=== PATIENT | female | born 1950 | race Caucasian/White ===

== ENCOUNTER → 2017-09-24 | Outpatient (CLI) | payer MEDICARE ==
[~2017-09-24] MED LIST: Aspirin EC81 MG; ESTRACE PO; HAIR REGROWTH TP; KRILL OIL 1,001 EAC1 PO; MAGNESIUM250 MG PO; OMEP10ER PO; PROG100 PO; VITAMIN D31000 UNIT PO; Vivelle-Dot1 EAC1 TD
[2017-09-28 13:05] LABS: HPV Genotype 16 Not Detected (NOTDET); HPV Genotype 18 Not Detected (NOTDET); HPV High Risk Other Not Detected (NOTDET)
== END | disposition home or self-care (01) ==
LOC: OLS 13:11
PROVIDERS: Obstetrics & Gynecology Gynecology
DX: Z91.89 Other specified personal risk factors, not elsewhere classified (principal)
CPT/HCPCS: 87624; G0123

== ENCOUNTER → 2017-10-16 | Outpatient (CLI) | payer MEDICARE | LOC: LAB 07:18 | DX: N84.0 Polyp of corpus uteri (principal); N95.0 Postmenopausal bleeding | CPT/HCPCS: 88305 ==

== ENCOUNTER → 2018-04-15 | Outpatient (CLI) | payer MEDICARE | LOC: PLD 10:06 → LAB SHORT 10:06 | DX: D48.5 Neoplasm of uncertain behavior of skin (principal) | CPT/HCPCS: 88305 ==

== ENCOUNTER 2020-09-22 21:41 | Emergency (ER) | payer MEDICARE ==
[~2020-09-22] VITALS: Ht 162.6 cm; Wt 73.0 kg
== END 2020-09-22 23:42 | disposition home or self-care (01) ==
LOC: ER 21:41
DX: I82.812 Embolism and thrombosis of superficial veins of left lower extremity (principal); Z79.82 Long term (current) use of aspirin; Z79.899 Other long term (current) drug therapy; Z87.891 Personal history of nicotine dependence
CPT/HCPCS: 93971; 99283-25; J1885

== ENCOUNTER → 2023-04-15 | Outpatient (CLI) | payer MEDICARE | LOC: LAB SHORT 11:55 → PLD 11:55 | DX: D04.72 Carcinoma in situ of skin of left lower limb, including hip (principal) | CPT/HCPCS: 88305 ==

== ENCOUNTER → 2023-04-22 | Outpatient (CLI) | payer MEDICARE | END | disposition home or self-care (01) | LOC: LAB 13:10 → LAB SHORT 13:10 | DX: L08.0 Pyoderma (principal) | CPT/HCPCS: 87070; 87205 ==